=== PATIENT | female | born 1955 | race Caucasian/White ===

== ENCOUNTER 2019-12-04 09:49 | Day surgery (SDC) | payer MEDICARE ==
[2019-12-04] MEDS ORDERED: AMLO10TA4 PO (10:30)
[2019-12-04 11:02] LABS: INTERNATIONAL NORMALIZED RATIO 0.99 (0.93-1.1); PROTHROMBIN TIME 10.4 Seconds (9.6-11.5)
[2019-12-04] MEDS ORDERED: FENTANYL PF 100 MCG/2ML ONE ×2 (12:42→12:43)
[2019-12-04] MEDS ORDERED: MIDAZOLAM 1 MG/ML, 5ML ONE (12:43)
[2019-12-04] MEDS ORDERED: FLUMAZENIL 0.1 MG/1 ML, 5ML ONE (12:43)
[2019-12-04] MEDS ORDERED: NALOXONE 1 MG/ML, 2ML ONE (12:43)
== END 2019-12-04 15:30 | disposition home or self-care (01) ==
LOC: OUT 09:49 → EDSTATUS 12:00 → OUT 15:30
PROVIDERS: ATTEND Internal Medicine Gastroenterology
DX: R16.0 Hepatomegaly, not elsewhere classified (principal); C78.7 Secondary malignant neoplasm of liver and intrahepatic bile duct; R18.8 Other ascites; N13.30 Unspecified hydronephrosis; R63.4 Abnormal weight loss; R32 Unspecified urinary incontinence; I10 Essential (primary) hypertension; Z68.24 Body mass index [BMI] 24.0-24.9, adult; Z79.899 Other long term (current) drug therapy
CPT/HCPCS: 36415; 47000; 74150; 77012; 85610; 88307; 88341; 88342; 99156; J2250; J3010; J2310

== ENCOUNTER 2019-12-11 07:38 | Outpatient (CLI) | payer MEDICARE ==
[~2019-12-11 07:38] MED LIST: AMLO10TA4 PO
[2019-12-11 08:45] LABS: BASOPHILS # (AUTO) 0.02 x10^3/uL (0-0.1); BASOPHILS % (AUTO) 0 % (0-1); EOSINOPHILS # (AUTO) 0.04 x10^3/uL (0-0.4); EOSINOPHILS % (AUTO) 0 % (1-7); LYMPHOCYTES # (AUTO) 1.04 x10^3/uL (1-3.4); LYMPHOCYTES % (AUTO) 12 % (22-44); MD NO; MEAN CORPUSCULAR HEMOGLOBIN 29.6 pg (27.0-34.8); MEAN CORPUSCULAR HGB CONC 32.8 g/dL (32.4-35.8); MEAN PLATELET VOLUME 7.8 fL (7.4-10.4); MONOCYTES # (AUTO) 0.88 x10^3/uL (0.2-0.8); MONOCYTES % (AUTO) 10 % (2-9); NEUTROPHILS # (AUTO) 6.96 x10^3/uL (1.8-6.8); NEUTROPHILS % (AUTO) 78 % (42-75); PLATELET COUNT 688 x10^3/uL (130-400); RED BLOOD COUNT 4.12 x10^6/uL (3.82-5.3); RED CELL DISTRIBUTION WIDTH 14.4 % (9.6-15.2)
[2019-12-11 08:53] LABS: INTERNATIONAL NORMALIZED RATIO 0.97 (0.93-1.1); PROTHROMBIN TIME 10.3 Seconds (9.6-11.5)
[2019-12-11 08:54] LABS: ALANINE AMINOTRANSFERASE 19 U/L (12-78); ALBUMIN 2.4 g/dL (3.4-5.0); ANION GAP 8 mmol/L (5-15); CALCIUM 9.1 mg/dL (8.5-10.1); CHLORIDE 101 mmol/L (98-107); CREATININE 0.87 mg/dL (0.55-1.02)
[2019-12-11 08:57] LABS: ALKALINE PHOSPHATASE 296 U/L (45-117); BILIRUBIN,TOTAL 0.9 mg/dL (0.2-1.0); TOTAL PROTEIN 8.1 g/dL (6.4-8.2)
[2019-12-22] MEDS ORDERED: ONDA4TAB7 PO (09:30)
[2019-12-22] MEDS ORDERED: OXYC-302 PO (09:30)
== END 2019-12-11 23:59 | disposition home or self-care (01) ==
LOC: STAR 07:38
PROVIDERS: ATTEND Specialist
DX: Z01.818 Encounter for other preprocedural examination (principal); R19.09 Other intra-abdominal and pelvic swelling, mass and lump; R32 Unspecified urinary incontinence; R93.89 Abnormal findings on diagnostic imaging of other specified body structures; Z79.899 Other long term (current) drug therapy
CPT/HCPCS: 36415; 71046; 80053; 85025; 85610; 85730; 93005

== ENCOUNTER 2020-01-06 17:24 | Outpatient (CLI) | payer MEDICARE ==
[~2020-01-06 17:24] MED LIST changes: -CYSTO CONRAY II 250 ML VIAL UR ONE; -OMNIPAQUE 350 MG/ML, 100ML BOTTLE ONE
== END 2020-01-06 23:59 | disposition home or self-care (01) ==
LOC: RAD 17:24
PROVIDERS: ATTEND Nurse Practitioner Acute Care
DX: Z02.9 Encounter for administrative examinations, unspecified (principal)

== ENCOUNTER → 2020-01-06 | Outpatient (CLI) | payer MEDICARE ==
[~2020-01-06] MED LIST changes: +CYSTO CONRAY II 250 ML VIAL UR ONE; +OMNIPAQUE 350 MG/ML, 100ML BOTTLE ONE; +ONDA4TAB7 PO; +OXYC-302 PO
== END | disposition home or self-care (01) ==
LOC: RAD 12:48
PROVIDERS: ATTEND Physician Assistant
DX: S37.20XS Unspecified injury of bladder, sequela (principal); C56.9 Malignant neoplasm of unspecified ovary; C78.89 Secondary malignant neoplasm of other digestive organs; J98.11 Atelectasis; J18.9 Pneumonia, unspecified organism; R19.09 Other intra-abdominal and pelvic swelling, mass and lump; R32 Unspecified urinary incontinence; R93.89 Abnormal findings on diagnostic imaging of other specified body structures; X58.XXXS Exposure to other specified factors, sequela
CPT/HCPCS: 71275; 74430; Q9958; Q9967